=== PATIENT | female | born 1950 | race Caucasian/White ===

== ENCOUNTER → 2017-10-03 | Outpatient (CLI) | payer OTHER | LOC: LAB 09:54 | PROVIDERS: ATTEND Nurse Practitioner Community Health | DX: E11.8 Type 2 diabetes mellitus with unspecified complications (principal) | CPT/HCPCS: 36415; 82951; 82952; 82962 ==

== ENCOUNTER → 2021-06-12 | Outpatient (CLI) | payer MEDICARE ==
--- NOTE | 2021-06-12 15:44 | Diagnostic Imaging Report ---
INDICATION: Right hip pain. FINDINGS: 2 views. Moderate arthritic changes are seen with narrowing of the joint space. There is sclerotic change with subcortical cystic change along the acetabulum. Minimal hypertrophic changes are seen along the base of the femoral head laterally. Femoral head appears smooth with no evidence of fracture. IMPRESSION: Moderate arthritic changes noted of the right hip. Dictated by: Dictated on workstation # [id number]
== END ==
LOC: RAD 12:36
PROVIDERS: ATTEND Internal Medicine
DX: M16.11 Unilateral primary osteoarthritis, right hip (principal)
CPT/HCPCS: 73502

== ENCOUNTER 2021-12-13 06:31 | Outpatient (CLI) | payer MEDICARE, MEDICAID ==
[~2021-12-13] VITALS: Ht 152.4 cm; Wt 83.4 kg
[2021-12-13] MEDS ORDERED: DULO30CA49 PO (11:10)
== END 2021-12-13 11:16 | disposition home or self-care (01) ==
LOC: PREOP 06:31
PROVIDERS: ATTEND Surgery
DX: Z01.818 Encounter for other preprocedural examination (principal)

== ENCOUNTER 2021-12-20 10:21 | Day surgery (SDC) | payer MEDICARE, MEDICAID ==
[~2021-12-20] VITALS: Ht 152 cm; Wt 83.4 kg
[~2021-12-20 10:21] MED LIST: DULO30CA49 PO
[2021-12-20] MEDS ORDERED: LACTATED RINGERS 1,000 ML IV STA (10:39)
[2021-12-20 10:45] VITALS: BP 139/85
[2021-12-20] MEDS ORDERED: HURRICAINE EXT TUBE (BENZOCAINE) XX PRN (10:45)
[2021-12-20] MEDS ORDERED: LIDOCAINE JELLY 2% 6 ML SYRINGE MM PRN (10:45)
[2021-12-20] MEDS ORDERED: ONDANSETRON 4 MG (ZOFRAN) ORAL DISSOLVE TAB PO PRN (11:15)
[2021-12-20] MEDS ORDERED: ONDANSETRON 4 MG/2 ML (SDV) Z0FRAN IVP PRN (11:15)
--- NOTE | 2021-12-20 11:15 | Progress Note-Pre Operative ---
Pre-Operative Progress Note Date of Available H&P: Dec 20, 2021 Date H&P Reviewed: Dec 20, 2021 Time H&P Reviewed: 11:00 History & Physical: No changes noted Pre-Operative Diagnosis: dysphagia, GERD, screening ROBERT LANZA MD Dec 20, 2021 11:15
--- NOTE | 2021-12-20 11:17 | Discharge Inst-Surgical ---
D/C Lap Instructions-POOL Follow Up Activity as tolerated High Fiber Diet 25g or more per day Avoid Alcohol, Caffeine, Spicy [place] and Acid foods. Drink 64 fluid oz or more of fluids per day. Symptoms to Report: Fever over 101 degree F, Nausea/Vomiting If any problems/questions: Contact your physician or go to Emergency Room ROBERT LANZA MD Dec 20, 2021 11:17
[2021-12-20] MEDS ORDERED: PROPOFOL INJECTION 50 ML IV ONE (12:06)
--- NOTE | 2021-12-20 12:47 | Anesthesia-General Post-Op ---
MAC Patient Condition Mental Status/LOC: Same as Preop Cardiovascular: Satisfactory Nausea/Vomiting: Absent Respiratory: Satisfactory Pain: Controlled Complications: Absent Post Op Complications Complications None Follow Up Care/Instructions Patient Instructions None needed. Anesthesiology Discharge Order Discharge Order Patient is doing well, no complaints, stable vital signs, no apparent adverse anesthesia problems. No complications reported per nursing. MARTIN ESCOTO CRNA Dec 20, 2021 12:47
[2021-12-20 12:50] VITALS: BP 141/51
[2021-12-20 12:55] VITALS: BP 152/62
--- NOTE | 2021-12-20 12:58 | Progress Note-Post Operative ---
Post-Operative Progess Note Surgeon (s)/Mortgage Specialist (s) Surgeon ROBERT LANZA MD Mortgage Specialist: none Pre-Operative Diagnosis dysphagia, GERD, screening Post-Operative Diagnosis reflux esophagitis(grade C), mild dist esoph stricture, small recurrent HH(1.5cm), moderate gastritis. stage 2-3 ext and int hemorrhoids, mild sigmoid diverticulosis. Procedure & Operative Findings Date of Procedure 12/20/21 Procedure Performed/Findings EGD with bx and balloon dilatation. colonoscopy Anesthesia Type mac Estimated Blood Loss Estimated blood loss (mL): minimal Specimens/Packing Specimens Removed ge jxn, antrum ROBERT LANZA MD Dec 20, 2021 12:58
[2021-12-20] MEDS ORDERED: LACTATED RINGERS 1,000 ML IV ONE (13:08)
[2021-12-20 13:17] VITALS: BP 144/66
--- NOTE | 2021-12-20 21:25 | OPERATIVE REPORT ---
DATE OF SERVICE: 12/20/2021 ATTENDING PRIMARY CARE PHYSICIAN: Dr. Edgard Avitia. PREOPERATIVE DIAGNOSES: Gastroesophageal reflux disease, dysphagia, screening colonoscopy. POSTOPERATIVE DIAGNOSES: Reflux esophagitis, [place] grade C with a mild distal esophageal stricture, small recurrent hiatal hernia 1.5 cm in size, moderate gastritis, chronic between stage II and III external and internal hemorrhoids, mild sigmoid diverticulosis. PROCEDURE: EGD with biopsy and balloon dilatation. Colonoscopy. SURGEON: Robert Lanza MD. ANESTHESIA: Monitored anesthesia care. ESTIMATED BLOOD LOSS: Minimal. FINDINGS: Reflux esophagitis, [place] grade C with a mild distal esophageal stricture, small recurrent hiatal hernia 1.5 cm in size, moderate gastritis, chronic between stage II and III external and internal hemorrhoids, mild sigmoid diverticulosis. DISPOSITION: The patient tolerated the procedure well. INDICATIONS: The patient is a 71-year-old female referred over to us for an EGD and colonoscopy. She reports that she has had a longstanding history of gastroesophageal reflux disease and did have a hiatal hernia repair at some point in her life; however, cannot remember when and where for she has moved multiple times throughout her life. She reports that she has been having some recurrent episodes of epigastric burning sensation as well as crampy pain. She is also in need of a screening colonoscopy. She does not report any major issues with diarrhea, no constipation as well as no red blood per rectum nor any dark tarry stools. She also does not report any family history of colon cancer. DESCRIPTION OF PROCEDURE: The patient was brought to the endoscopy suite, laid in left lateral decubitus position. After adequate IV pain and sedative medications and monitored anesthesia care, the mouthpiece was applied. The endoscope was placed in the mouth, visualized the pharynx and hypopharyngeal region. Vocal cords, epiglottis and vallecula identified and appeared to be normal. The endoscope was then gently intubated at the esophageal opening and esophagus insufflated. The endoscope was then advanced through the first, second and third portion of esophagus at the level of the GE junction, a reflux esophagitis, [place] grade C identified as well as a mild distal esophageal stricture and a biopsy was taken with forceps with visualization of good hemostasis. The endoscope was then advanced into the stomach and endoscope retroflexed visualizing anatomical changes consistent with antireflux procedure. There is a small recurrent hiatal hernia approximately 1.5 cm in size. There was a moderate severity gastritis. No formal ulcerations, polyps, or any neoplasms. A biopsy was taken of the antrum to rule out H. pylori with visualization of good hemostasis. The endoscope was then advanced to the pylorus and the first and second portion of the duodenum, which appeared normal with no distal obstructions. The balloon was then placed in the stomach and pulled back to the area of the stricture. We then proceeded with dilatation in a graded stepwise fashion from 2, 4, then eventually 6 atmospheres of pressure or 20 mm in luminal diameter with moderate resistance and left this in place for 60 seconds. The balloon was then desufflated and removed with visualization of good hemostasis as well as no mucosal tears. The endoscope was then slowly withdrawn while taking a second look and suctioning of residual air with no additional findings. A digital rectal examination was performed, which revealed chronic between stage II and III external and internal hemorrhoids with some mild irritation of the internal hemorrhoidal cushion. Normal sphincter tone was felt and there were no palpable masses. The endoscope was then intubated to the anus and rectum gently insufflated. The endoscope was then advanced through the valves of [place] of the rectum with no polyps or any neoplasms identified. We then proceeded through the sigmoid colon where a mild sigmoid diverticulosis was identified. The endoscope was then advanced through the remainder of the descending, transverse and ascending colon to the cecum, which were normal. There were no polyps or any neoplasms identified throughout the colon or rectum. The endoscope was then slowly withdrawn while taking a second look and suctioning of residual air with no additional findings. The patient tolerated the procedure well. We will recommend the necessary lifestyle and dietary accommodation including small and more frequent meals, avoidance of eating at night as well as head elevation while lying supine. She also needs to avoid caffeinated beverages, spicy, greasy and acidic foods. We will also start her on Protonix 40 mg daily. We will also recommend a high fiber diet with fiber supplement, which should equal or exceed 25 grams daily as well as significant amounts of water to promote soft consistency stools on a daily basis. There were no polyps identified and she does not have any family history of colon cancer and if she is compliant with high-fiber diet and does not have any issues, she may wait 10 years for next colonoscopy; however, if she has worsening hemorrhoids, which bleed or otherwise symptomatic in other ways, we will have her follow up. Job ID: [id number] DocumentID: [id number] Dictated Date: 12/20/2021 12:49:50 Rn Intensive Care Unit Date: 12/20/2021 21:23:50 Dictated By: ROBERT LANZA MD
== END 2021-12-20 13:30 | disposition home or self-care (01) ==
LOC: ENDO 10:21
PROVIDERS: ATTEND Surgery
DX: Z12.11 Encounter for screening for malignant neoplasm of colon (principal); K21.00 Gastro-esophageal reflux disease with esophagitis, without bleeding; K22.2 Esophageal obstruction; K44.9 Diaphragmatic hernia without obstruction or gangrene; K29.50 Unspecified chronic gastritis without bleeding; K64.2 Third degree hemorrhoids; K64.4 Residual hemorrhoidal skin tags; K57.30 Diverticulosis of large intestine without perforation or abscess without bleeding; Z87.891 Personal history of nicotine dependence; Z28.310 Unvaccinated for COVID-19
CPT/HCPCS: 43239; 43249; G0121